=== PATIENT | female | born 1950 ===

== ENCOUNTER 2019-12-27 18:42 | Emergency (ER) | payer MEDICARE, MEDICAID, SELFPAY ==
[2019-12-27] VITALS (14 sets, daily range): BP systolic 118–142; BP diastolic 58–74; PULSE 64–75; RESP 9–33; TEMP 36.2; O2SAT 92–100; BMI 29.8
--- NOTE | 2019-12-27 18:47 | DI.RAD.S_ITS ---
PROCEDURE: XR WRIST LT MIN 3V INDICATIONS: Fall TECHNIQUE: 4 views of the wrist were acquired. COMPARISON: None. FINDINGS: Bones: There is a comminuted, impacted, displaced, intra-articular fracture of the distal left radius. Carpal bones are intact. Visualized portions of the ulna are intact. Scaphoid view: The scaphoid is intact. Soft tissues: No suspicious soft tissue calcifications. IMPRESSION: Comminuted, intra-articular, impacted distal radial fracture. Dictated by: Melissa Giles M.D. on 12/27/2019 at 19:06 Approved by: Melissa Giles M.D. on 12/27/2019 at 19:08
--- NOTE | 2019-12-27 18:59 | ED.UPPEXIN ---
HPI - Extremity Injury (Upper) <MARIAN Crockett - Last Filed: 12/27/19 20:14> General Chief Complaint: Extremity Injury, Upper Stated Complaint: LEFT WRIST INJURY Time Seen by Provider: 12/27/19 18:45 Source: patient Mode of arrival: Ambulatory Limitations: no limitations History of Present Illness HPI narrative: 69yo female presents emergency department after referral from an [facility] for a left wrist fracture. She states she fell to the side and landed on her left hand and experienced sudden pain with a notable deformity. Patient is able to wiggle her fingers without difficulty. X-ray was taken at the [facility] and she was sent here for reduction. Patient denies any major medical issues or severe allergies. Patient denies numbness, tingling, chest pain, shortness of breath, fevers, chills, dizziness, head injury, neck pain, or any other concerns. Related Data Previous Rx's Medication Instructions Recorded hydrocodone-acetaminophen [[place]] 1 tab PO Q4-6H PRN #10 tab 12/27/19 ondansetron 4 mg PO Q6H PRN #10 tab 12/27/19 Allergies Allergy/AdvReac Type Severity Reaction Status Date / Time No Known Drug Allergies Allergy Verified 12/27/19 18:52 Review of Systems <MARIAN Crockett - Last Filed: 12/27/19 20:14> Review of Systems Narrative: REVIEW OF SYSTEMS: GENERAL: Denies fever or chills. HENT: No head trauma. EYES: No no vision changes. CARDIOVASCULAR: No chest pain. RESPIRATORY: No shortness of breath. GASTROINTESTINAL: No nausea, vomiting, diarrhea, or constipation. GENITOURINARY: No flank pain. MUSCULOSKELETAL: Complains of left wrist pain and deformity, see HPI. INTEGUMENTARY: No rash, lesions, or pruritus. NEURO: No numbness, tingling. PSYCH: No behavior or mood changes. Patient History <MARIAN Crockett - Last Filed: 12/27/19 20:14> Medical History No significant medical problems (Acute) Social History Smoking Status: Never smoker Smoking Status: Never smoker Substance Use Type: does not use Exam <MARIAN Crockett - Last Filed: 12/27/19 20:14> Initial Vital Signs Initial Vital Signs: Vital Signs Pulse Rate 72 12/27/19 18:50 Pulse Oximetry 100 12/27/19 18:50 PHYSICAL EXAMINATION: GENERAL: Well groomed, alert, and cooperative. Answers questions promptly and appropriately. Vital signs noted. HENT: Normocephalic, atraumatic. EYES: Symmetrical, sclera white, no periorbital swelling. CARDIOVASCULAR: Regular rate. RESPIRATORY: Normal respiratory rate, trachea midline, airway patent. No stridor, nasal flaring or accessory muscle use. MUSCULOSKELETAL: Notable deformity to left wrist, moderate swelling, and tenderness with palpation to this area. Patient able to move fingers without difficulty, no pain with palpation of elbow, shoulder, hip, or neck. CMS intact distal to fracture, radial pulse 1+. Cap refill less than 2 seconds, hand is warm, ecchymosis noted around wrist and hand. EXTREMITIES: CMS intact. SKIN: Warm, dry, soft, appropriate color for ethnicity. No lesions, rashes, or wounds. NEURO: Alert and Oriented X 3. No sensory deficits. PSYCH: Appropriate affect and mood. <Go Gregory DO - Last Filed: 12/28/19 01:32> Initial Vital Signs Initial Vital Signs: Vital Signs Pulse Rate 72 12/27/19 18:50 Pulse Oximetry 100 12/27/19 18:50 Procedures <MARIAN Crockett - Last Filed: 12/27/19 20:14> Orthopedic Fracture Reduction Fracture #1: Time Out Performed: Yes Side: left Fracture Reduction Location: radius and ulna Analgesia: procedural sedation Technique: direct manipulation Post Reduction X-rays Demonstrate: anatomical reduction Post-reduction neuro exam: intact Post-reduction vascular exam: intact Splint Applied: Yes Patient Tolerated Procedure: Well Additional Comments: Performed by Dr. Gregory. Orthopedic Splinting/Casting Injury #1: Side: left Upper Extremity Injury Location: wrist Upper Extremity Immobilizer: sling/shoulder immobilizer Post splinting neuro exam: intact Post splinting vascular exam: intact Placed by: Nursing <Go Gregory DO - Last Filed: 12/28/19 01:32> Procedural Sedation Consent signed: Yes Time out performed: Yes Indication: fracture/dislocation reduction ASA Class: I Mallampati Airway Classification: Class I Preparation: photo stylist applied, pulse oximeter, capnometry used, supplemental O2 applied, suction/airway equipment at bedside and IV secured IV Propofol dose (mg): 50 Intraservice time/total sedation time (min): 10 ED Sedation Level: Moderate (Concious) Patient Tolerated Procedure: Well Complications: none Course <Eileen ProMARIAN - Last Filed: 12/27/19 20:14> Course Course Narrative: 1904: Dr. Gergory at bedside to discuss conscious sedation with patient. 1946: Conscious sedation an orthopedic reduction performed by Dr. Gregory, splinting performed by Nursing. Patient tolerated procedure well, reported decreased pain after splinting and sling. Orders Ordered: ED Orders 12/27/19 18:47 XR wrist LT min 3V Stat 12/27/19 19:43 XR wrist LT 2V Stat Discontinued Medications Hydrocodone Bitart/Acetaminophen (Vicodin 5/325 Prepack) 1 bottle MISC SEEINSTR ONE Stop: 12/27/19 19:53 Last Admin: 12/27/19 20:13 Dose: 1 bottle Documented by: THEODORE Sodium Chloride (Normal Saline 0.9%) 1,000 mls @ 1,000 mls/hr IV BOLUS ONE Stop: 12/27/19 20:09 Last Admin: 12/27/19 19:37 Dose: 1,000 mls/hr Documented by: THEODORE Ondansetron HCl (Zofran Odt Prepack) 1 bottle MISC SEEINSTR ONE Stop: 12/27/19 19:53 Last Admin: 12/27/19 20:13 Dose: 1 bottle Documented by: THEODORE Propofol (Diprivan) 85 mg 1 mg/kg (85 mg) IV NOW ONE Stop: 12/27/19 19:22 Last Admin: 12/27/19 19:37 Dose: 50 mg Documented by: THEODORE Vital Signs Vital signs: Vital Signs - 8 hr 12/27/19 18:50 12/27/19 18:52 12/27/19 19:25 Temperature 97.2 F L Pulse Rate 72 70 69 Respiratory Rate 18 21 Blood Pressure 118/65 Blood Pressure [Right Arm] 127/60 Pulse Oximetry 100 100 100 12/27/19 19:26 12/27/19 19:30 12/27/19 19:35 Temperature Pulse Rate 73 68 69 Respiratory Rate 33 H 21 20 Blood Pressure 127/58 L 127/60 118/61 Blood Pressure [Right Arm] 118/61 Pulse Oximetry 99 99 100 12/27/19 19:40 12/27/19 19:41 12/27/19 19:45 Temperature Pulse Rate 66 66 67 Respiratory Rate 21 23 18 Blood Pressure 142/66 H 123/61 Blood Pressure [Right Arm] 142/66 H 123/61 Pulse Oximetry 93 92 95 12/27/19 19:50 12/27/19 19:55 12/27/19 20:00 Temperature Pulse Rate 74 67 66 Respiratory Rate 15 18 9 L Blood Pressure 125/73 121/70 142/71 H Blood Pressure [Right Arm] 125/73 121/70 142/71 H Pulse Oximetry 96 99 100 12/27/19 20:05 12/27/19 20:10 Temperature Pulse Rate 64 65 Respiratory Rate 11 L 11 L Blood Pressure 142/69 H 142/74 H Blood Pressure [Right Arm] 142/69 H 142/74 H Pulse Oximetry 99 100 <Go Gregory, DO - Last Filed: 12/28/19 01:32> Orders Ordered: ED Orders 12/27/19 18:47 XR wrist LT min 3V Stat 12/27/19 19:43 XR wrist LT 2V Stat Discontinued Medications Hydrocodone Bitart/Acetaminophen (Vicodin 5/325 Prepack) 1 bottle MISC SEEINSTR ONE Stop: 12/27/19 19:53 Last Admin: 12/27/19 20:13 Dose: 1 bottle Documented by: THEODORE Sodium Chloride (Normal Saline 0.9%) 1,000 mls @ 1,000 mls/hr IV BOLUS ONE Stop: 12/27/19 20:09 Last Admin: 12/27/19 19:37 Dose: 1,000 mls/hr Documented by: THEODORE Ondansetron HCl (Zofran Odt Prepack) 1 bottle MISC SEEINSTR ONE Stop: 12/27/19 19:53 Last Admin: 12/27/19 20:13 Dose: 1 bottle Documented by: THEODORE Propofol (Diprivan) 85 mg 1 mg/kg (85 mg) IV NOW ONE Stop: 12/27/19 19:22 Last Admin: 12/27/19 19:37 Dose: 50 mg Documented by: THEODORE Vital Signs Vital signs: Vital Signs - 8 hr 12/27/19 18:50 12/27/19 18:52 12/27/19 19:25 Temperature 97.2 F L Pulse Rate 72 70 69 Respiratory Rate 18 21 Blood Pressure 118/65 Blood Pressure [Right Arm] 127/60 Pulse Oximetry 100 100 100 12/27/19 19:26 12/27/19 19:30 12/27/19 19:35 Temperature Pulse Rate 73 68 69 Respiratory Rate 33 H 21 20 Blood Pressure 127/58 L 127/60 118/61 Blood Pressure [Right Arm] 118/61 Pulse Oximetry 99 99 100 12/27/19 19:40 12/27/19 19:41 12/27/19 19:45 Temperature Pulse Rate 66 66 67 Respiratory Rate 21 23 18 Blood Pressure 142/66 H 123/61 Blood Pressure [Right Arm] 142/66 H 123/61 Pulse Oximetry 93 92 95 12/27/19 19:50 12/27/19 19:55 12/27/19 20:00 Temperature Pulse Rate 74 67 66 Respiratory Rate 15 18 9 L Blood Pressure 125/73 121/70 142/71 H Blood Pressure [Right Arm] 125/73 121/70 142/71 H Pulse Oximetry 96 99 100 12/27/19 20:05 12/27/19 20:10 Temperature Pulse Rate 64 65 Respiratory Rate 11 L 11 L Blood Pressure 142/69 H 142/74 H Blood Pressure [Right Arm] 142/69 H 142/74 H Pulse Oximetry 99 100 MDM - Extremity Injury (Upper) <MARIAN Crockett - Last Filed: 12/27/19 20:14> Medical Records Attestation: I reviewed the patient's medical records. Lab Data Attestation: I reviewed the patient's lab results. Labs: Point of Care Testing Test Results Not applicable Imaging Data Extremity x-ray #1: Radiologist's Impression: [address] [address] XRay Report Signed Patient: Dede Ludwig [facility]#: [id number] : 9Acct:[id number] Age/Sex: 69 / FDate of Service: 12/27/19 Loc: ED Accession Number: [id number] Procedure: XR wrist LT min 3V Ordering Provider: Eileen Pro PROCEDURE: XR WRIST LT MIN 3V INDICATIONS: Fall TECHNIQUE: 4 views of the wrist were acquired. COMPARISON: None. FINDINGS: Bones: There is a comminuted, impacted, displaced, intra-articular fracture of the distal left radius. Carpal bones are intact. Visualized portions of the ulna are intact. Scaphoid view: The scaphoid is intact. Soft tissues: No suspicious soft tissue calcifications. IMPRESSION: Comminuted, intra-articular, impacted distal radial fracture. Dictated by: Melissa Giles M.D. on 12/27/2019 at 19:06 Approved by: Melissa Giles M.D. on 12/27/2019 at 19:08 Extremity x-ray #2: Radiologist's Impression: [address] [address] XRay Report Signed Patient: Dede Ludwig IMR#: [id number] : 9Acct:[id number] Age/Sex: 69 / FDate of Service: 12/27/19 Loc: ED Accession Number: [id number] Procedure: XR wrist LT 2V Ordering Provider: Go Gregory D.O. PROCEDURE: XR WRIST LT 2V INDICATIONS: post reduction TECHNIQUE: Lateral to views of the wrist were acquired. [facility], 18:51. FINDINGS: Bones: Patient is status post interval reduction of the distal radial fracture. Fracture fragments are in near-anatomic alignment. Soft tissues: No suspicious soft tissue calcifications. IMPRESSION: Status post reduction of the distal radial fracture with near-anatomic alignment of the fracture fragments. Dictated by: Melissa Giles M.D. on 12/27/2019 at 19:56 Approved by: Melissa Giles M.D. on 12/27/2019 at 19:56 MDM Narrative Medical decision making narrative: 69-year-old female presenting to the emergency department for a left wrist deformity after being referred from [facility]. Comminuted intra-articular impacted distal radial fracture, no concerns for neurovascular compromise as CMS is intact, radial pulse 1 + and palpable pre and post reduction. Cap refill less than 2 seconds pre and post reduction, and pre and post splinting. Conscious sedation and reduction was performed by Dr. Gregory. Patient tolerated procedure well. Patient was able to talk, and ambulate without difficulty postprocedure. Return precautions given for new or worsening symptoms. Patient and daughter agreed to plan of care verbalized understanding. They were counseled about the importance of follow-up as surgery, patient and family verbalized understanding. <Go Gregory DO - Last Filed: 12/28/19 01:32> Lab Data Labs: Point of Care Testing Test Results Not applicable Discharge Plan Departure Patient Disposition: Home Clinical Impression: Fracture of wrist Qualifiers: Encounter type: initial encounter Fracture type: closed Laterality: left Qualified Code(s): S62.102A - Fracture of unspecified carpal bone, left wrist, initial encounter for closed fracture Discharge Date/Time: 12/27/19 20:15 Instructions: DI for Wrist Fracture Activity Restrictions/Additional Instructions: Thank you for entrusting me with your care today. As discussed, you have a significant fracture to your left wrist. We reduced it and put your wrist in a splint but you will need follow-up with an orthopedic in the next week. Please call the number listed below tomorrow and schedule an appointment. Return to the emergency department for any new or worsening symptoms such as severe pain, numbness, tingling, chest pain, uncontrollable vomiting, or any other concerns. You have been prescribed a narcotic medication, this medication can make you drowsy. Do not drive while using this medication or perform activities that require mental alertness. These medications can also make you constipated, please use [id number] docusate sodium as needed for constipation. Do not take Tylenol/acetaminophen with this medication as this medication contains Tylenol/acetaminophen. You have also been prescribed nausea medication. Prescriptions: New ondansetron 4 mg tablet,disintegrating 4 mg PO Q6H PRN (Reason: nausea and vomiting) Qty: 10 RF: 0 hydrocodone-acetaminophen [[place]] 5-325 mg tablet 1 tab PO Q4-6H PRN (Reason: pain) Qty: 10 RF: 0 Referrals: Melvin Burns MD [Physician] - (Comminuted, intra-articular, impacted distal radial fracture.) <DO Mehrdad Gold Last Filed: 12/28/19 01:32> Cosign ED Attending Cosignature Attestation: I was immediately available in the department for consultation. This documentation has been reviewed and I agree with assessment and plan. Supervised by Go Gregory, DO
[2019-12-27] MEDS: SODIUM CHLORIDE 0.9% 1,000 ML 1000 ML IV (19:37)
[2019-12-27] MEDS: propofoL 200 MG/20 ML VIAL 85 MG IV (19:37)
--- NOTE | 2019-12-27 19:43 | DI.RAD.S_ITS ---
PROCEDURE: XR WRIST LT 2V INDICATIONS: post reduction TECHNIQUE: Lateral to views of the wrist were acquired. COMPARISON: [facility], CR, XR WRIST LT MIN 3V, 12/27/2019, 18:51. FINDINGS: Bones: Patient is status post interval reduction of the distal radial fracture. Fracture fragments are in near-anatomic alignment. Soft tissues: No suspicious soft tissue calcifications. IMPRESSION: Status post reduction of the distal radial fracture with near-anatomic alignment of the fracture fragments. Dictated by: Melissa Giles M.D. on 12/27/2019 at 19:56 Approved by: Melissa Giles M.D. on 12/27/2019 at 19:56
[2019-12-27] MEDS: ONDANSETRON 4 MG ODT PREPACK 1 BOTTLE MISC (20:13)
[2019-12-27] MEDS: HYDROCODONE/ACET 5/325 PREPACK 1 BOTTLE MISC (20:13)
--- NOTE | 2019-12-27 22:34 | RT ---
12/27/20191934. RT present for conscious sedation via Fentanyl and reduction of fracture of L lower arm in 69YOF. ETCO2 and Pulse oximeter readings all WNL throughout the procedure, and patient recovered quickly and without complications. RT time 15 minutes. Omer Tierney, STOCK TAKER
== END 2019-12-27 20:15 | disposition home or self-care (01) ==
PROVIDERS: Emergency Provider Nurse Practitioner
DX: S62.102A Fracture of unspecified carpal bone, left wrist, initial encounter for closed fracture (principal); W19.XXXA Unspecified fall, initial encounter
CPT/HCPCS: 25605; 29125; 73100; 73110; 99152; 99285; J2704

== ENCOUNTER → 2020-01-08 15:02 | Outpatient (CLI) | payer MEDICARE, MEDICAID, SELFPAY ==
[2020-01-09 09:54] LABS: COVID19 Sendout Not Detected (Not Detect)
== END ==
PROVIDERS: Visit Provider Student in an Organized Health Care Education/Training Program
DX: Z01.812 Encounter for preprocedural laboratory examination (principal)
CPT/HCPCS: 87635

== ENCOUNTER 2020-01-11 08:50 | Day surgery (SDC) | payer MEDICARE, MEDICAID, SELFPAY ==
[2020-01-05 11:00] VITALS: BMI 31.7
[2020-01-11] VITALS (12 sets, daily range): BP systolic 134–170; BP diastolic 67–90; PULSE 73–87; RESP 11–20; TEMP 36.2–36.7; O2SAT 99–100; BMI 32.1
[2020-01-11] MEDS: LACTATED RINGERS 1,000 ML 42 ML IV ×2 (09:58→12:07)
--- NOTE | 2020-01-11 10:21 | PM.PREOP ---
Pre-operative Note COVID-19 COVID-19 status: Negative Result date/Date tested (Pos, Neg/Pending): 01/09/20 Interval Note History & Physical reviewed/Exam performed by Physician: Yes Changes to H&P: No
[2020-01-11] MEDS: CEFAZOLIN 2 GM/100 ML FROZ.PIGGY IV (10:56)
--- NOTE | 2020-01-11 11:23 | SUR.OPER ---
Supine on padded OR bed, head on pillow, operative arm on padded hand table at <90 degree angle, nonoperative arm secured on padded arm board at <90 degrees abduction, legs uncrossed, safety belt at thigh, tape over blanket over lower legs.
[2020-01-11] MEDS: BUPIVACAINE 0.25% W/ EPI 30 ML VIAL INJ (11:32)
--- NOTE | 2020-01-11 12:27 | PM.OP.1 ---
Operative Date/Time/Diagnoses Date of procedure: 01/11/20 Time of procedure: 11:00 Pre-op diagnosis: Intra-articular left distal radius fracture Post-op diagnosis: same Procedure & Clinicians Procedure: Open reduction internal fixation of a left distal radius fracture Same procedure as scheduled: Yes Indications: Patient with a displaced intra-articular distal radius fracture to the left wrist. Surgeon: Melvin Burns Click Yes if Unassisted: Yes Anesthesia Type: General Operative Notes Findings: Displaced intra-articular distal radius fracture with displacement involving the volar ulnar column as well as the dorsal column Closure Type: primary Specimen(s): none sent Applied: implant(s) (Arthrex distal radius plate) Estimated Blood Loss (mL): 10 Tourniquet time (min): 60 Procedure in detail: On date of service, patient was met in the holding area where the operative site was signed and witnessed by the OR staff. The surgery was once again discussed with the patient and any remaining questions or concerns were answered to the patient's full satisfaction. Time-out was performed verifying patient's name procedure and operative site. Patient was taken back to the operating theater and placed on the operating table in a supine position. Great care was taken to ensure that all bony prominences were appropriately padded. Well-padded tourniquet was placed up along the upper extremity. Another time-out was performed verifying patient's name, procedure, and operative site. The upper extremity was then prepped and draped in the normal sterile fashion. Esmarch was used to exsanguinate the limb and the tourniquet was turned up to 250 mm of mercury. Fifteen blade was used to expose the distal radius. An incision was made over the FCR tendons. The FCR tendon was retracted and the floor of the tendon was opened with a 15 blade. The FPL tendon and muscle belly was retracted ulnarly giving us good visualization of the pronator quadratus. The pronator quadratus was excised off the distal radius using the 15 blade and then finished with a periosteal elevator. Next the brachia radialis attachment to the radial styloid was released to help with overall reduction. Retractors were placed allowing us good visualization of the distal radius as well as the shaft. A reduction maneuver was performed and a K-wire was placed holding a provisional reduction of the intra-articular distal radius fracture. A [place] elevator was used to reduce the ulnar column intra-articular fragment reducing the articular surface. A reduction maneuver was then performed to reduce the dorsal column. C-arm was brought in to verify overall reduction. Once we were satisfied with the overall reduction, a plate was placed and held provisionally with K-wires. C-arm was once again used to verify plate positioning as well as reduction. The plate was then fixated to the distal fragment using locking screws. Lateral C-arm views were used to verify that the screws were not intra-articular or broaching the dorsal cortex. At this point we are able to use the plate to help fine tune the overall reduction. Once we were satisfied with the overall reduction the plate was then secured to the shaft with a combination of locking and nonlocking screws. Final x-rays were obtained. The wound was copiously irrigated and closed in a layered fashion. The wrist and hand were cleaned dried dressed. Patient was placed into a splint and taken to the PACU in stable condition. Complications: none Post-operative Condition: stable Disposition: PACU Plan for aftercare: Patient will come out of her splint early next week. At that point there is no restrictions to range of motion of the wrist. No lifting more than 2-3 lb for the next 6 weeks.
[2020-01-11] MEDS: fentaNYL 100 MCG/2 ML INJ IV ×4 (12:44→13:10)
[2020-01-11] MEDS: OXYCODONE IR 5 MG TABLET PO (13:15)
--- NOTE | 2020-01-11 14:11 | SUR.PHASEII ---
Apple sauce and crackers provided prior to discharge. All instructions given to patient and daughter. [place] pass [place] for [address]. Home in stable condition with all belongings returned to patient.
== END 2020-01-11 14:20 | disposition home or self-care (01) ==
PROVIDERS: PCP Family Medicine; Referring Provider Family Medicine; Visit Provider Orthopaedic Surgery
PROC: (CPT 25609; principal; 2020-01-11 10:45)
DX: S52.572A Other intraarticular fracture of lower end of left radius, initial encounter for closed fracture (principal); W18.30XA Fall on same level, unspecified, initial encounter; Y92.9 Unspecified place or not applicable
CPT/HCPCS: 25609; J0690; J1100; J2405; J2704; J3010

== ENCOUNTER → 2020-08-14 10:54 | Outpatient (CLI) | payer MEDICARE, MEDICAID, SELFPAY ==
--- NOTE | 2020-08-14 | DI.US.S_ITS ---
PROCEDURE: US EXTREMITY NONVASC LOWER RT INDICATIONS: Localized swelling, mass and lump, right lower limb TECHNIQUE: Real-time scanning was performed of the popliteal fossa of the right lower extremity, with image documentation. COMPARISON: None. FINDINGS: There is a 6.7 x 1.9 x 2.9 centimeter right popliteal cyst. Proteinaceous debris noted in the popliteal cyst. IMPRESSION: 6.7 x 1.9 x 2.9 centimeter right popliteal cyst. Dictated by: Meaghan Hill MD, PhD on 08/14/2020 at 15:19 Approved by: Meaghan Hill MD, PhD on 08/14/2020 at 15:28
== END ==
PROVIDERS: PCP Family Medicine; Referring Provider Family Medicine; Visit Provider Family Medicine
DX: R22.41 Localized swelling, mass and lump, right lower limb (principal); M71.21 Synovial cyst of popliteal space [Baker], right knee
CPT/HCPCS: 76882

== ENCOUNTER → 2021-06-03 12:21 | Outpatient (CLI) | payer MEDICARE, MEDICAID, SELFPAY ==
[2021-06-03 20:37] LABS: Add Manual Diff / Slide Review NO; Basophils Absolute Auto 0 /uL (0-100); Basophils Percent Auto 0.6 % (0-2); Eosinophils Absolute Auto 0 /uL (0-450); Eosinophils Percent Auto 0.9 % (2-4); Hematocrit 35.1 % (36-46); Hemoglobin 11.8 g/dL (12.0-16.0); Lymphocytes Absolute Auto 800 /uL (1100-4500); Lymphocytes Percent Auto 17.5 % (25-40); Mean Corpuscular HGB Conc 33.7 % (30-36); Mean Corpuscular Hemoglobin 30.7 PG (26-34); Mean Corpuscular Volume 91.3 fL (80-100); Monocytes Absolute Auto 400 /uL (0-900); Monocytes Percent Auto 7.5 % (3-14); Neutrophils Absolute Auto 3500 /uL (1500-7000); Neutrophils Percent Auto 73.5 % (50-75); Platelet Count 222 X10^3/uL (150-400); Red Blood Cell Count 3.84 X10^6/uL (4.0-5.2); Red Cell Distribution Width 14.3 % (11.6-14.8); White Blood Cell Count 4.7 X10^3/uL (4.5-11.0)
[2021-06-03 20:42] LABS: Alanine Aminotransferase 22 IU/L (<35); Albumin 4.2 g/dL (3.5-5.0); Albumin Globulin Ratio 1.4 (1.0-2.8); Alkaline Phosphatase 88 U/L (38-126); Aspartate Aminotransferase 27 IU/L (14-36); BUN Creatinine Ratio 22.8 (6-22); Bilirubin Total 1.3 mg/dL (0.2-1.3); Blood Urea Nitrogen 23 mg/dL (7-17); C-Reactive Protein Quant 0.6 mg/dL (<1.0); Calcium 10.1 mg/dL (8.4-10.2); Carbon Dioxide 31 mmol/L (22-32); Chloride 102 mmol/L (98-107); Cholesterol 241 mg/dL (140-199); Estimated Glomerular Filt Rate 53.9 mL/min (>60); Globulin 3.1 g/dL (1.7-4.1); Glucose 85 mg/dL (80-110); HDL Cholesterol 76 mg/dL (40-60); HEMOLYSIS < 15 (0-50); LDL Cholesterol Calculated 157 mg/dL (<100); Potassium 4.4 mmol/L (3.4-5.1); Sodium 140 mmol/L (137-145); Total Protein 7.3 g/dL (6.3-8.2); Triglycerides 38 mg/dL (35-150)
[2021-06-03 20:43] LABS: Erythrocyte Sedimentation Rate 30 MM/HR (0-20)
== END ==
PROVIDERS: PCP Physician Assistant; Referring Provider Physician Assistant; Visit Provider Physician Assistant
DX: M25.561 Pain in right knee (principal); Z13.220 Encounter for screening for lipoid disorders; M17.11 Unilateral primary osteoarthritis, right knee; R73.9 Hyperglycemia, unspecified; G89.29 Other chronic pain; M25.529 Pain in unspecified elbow; M79.644 Pain in right finger(s)
CPT/HCPCS: 80053; 80061; 85025; 85651; 86140

== ENCOUNTER → 2021-09-12 08:57 | Outpatient (CLI) | payer MEDICARE, MEDICAID, SELFPAY ==
[2021-09-12 18:21] LABS: Add Manual Diff / Slide Review NO; Basophils Absolute Auto 0 /uL (0-100); Basophils Percent Auto 0.4 % (0-2); Eosinophils Absolute Auto 100 /uL (0-450); Eosinophils Percent Auto 1.2 % (2-4); Hemoglobin 12.3 g/dL (12.0-16.0); Lymphocytes Absolute Auto 1000 /uL (1100-4500); Lymphocytes Percent Auto 18.2 % (25-40); Mean Corpuscular HGB Conc 34.1 % (30-36); Mean Corpuscular Hemoglobin 30.9 PG (26-34); Mean Corpuscular Volume 90.6 fL (80-100); Monocytes Absolute Auto 500 /uL (0-900); Monocytes Percent Auto 8.3 % (3-14); Neutrophils Absolute Auto 4100 /uL (1500-7000); Neutrophils Percent Auto 71.9 % (50-75); Platelet Count 210 X10^3/uL (150-400); Red Blood Cell Count 3.97 X10^6/uL (4.0-5.2); Red Cell Distribution Width 13.5 % (11.6-14.8); White Blood Cell Count 5.7 X10^3/uL (4.5-11.0)
[2021-09-12 18:24] LABS: HEMOLYSIS < 15 (0-50); Iron 89 ug/dL (37-170)
[2021-09-12 18:30] LABS: Cholesterol 155 mg/dL (140-199); HDL Cholesterol 78 mg/dL (40-60); LDL Cholesterol Calculated 64 mg/dL (<100); Triglycerides 67 mg/dL (35-150)
[2021-09-12 18:35] LABS: Percent Iron Saturation 29 % (15-50); Total Iron Binding Capacity 302 ug/dL (265-497); Transferrin 230 mg/dL (206-381)
[2021-09-12 19:01] LABS: Ferritin 29 ng/mL (11-264)
[2021-09-16 14:15] LABS: Alanine Aminotransferase 26 IU/L (<35); Albumin 4.3 g/dL (3.5-5.0); Albumin Globulin Ratio 1.4 (1.0-2.8); Alkaline Phosphatase 95 U/L (38-126); Aspartate Aminotransferase 29 IU/L (14-36); BUN Creatinine Ratio 20.7 (6-22); Bilirubin Total 1.2 mg/dL (0.2-1.3); Blood Urea Nitrogen 19 mg/dL (7-17); Calcium 10.2 mg/dL (8.4-10.2); Carbon Dioxide 26 mmol/L (22-32); Chloride 110 mmol/L (98-107); Estimated Glomerular Filt Rate 59.8 mL/min (>60); Globulin 3.1 g/dL (1.7-4.1); Glucose 97 mg/dL (80-110); HEMOLYSIS < 15 (0-50); Potassium 4.5 mmol/L (3.4-5.1); Sodium 143 mmol/L (137-145); Total Protein 7.4 g/dL (6.3-8.2)
== END ==
PROVIDERS: PCP Physician Assistant; Visit Provider Physician Assistant
DX: M25.561 Pain in right knee (principal); E78.5 Hyperlipidemia, unspecified; D64.9 Anemia, unspecified; G89.29 Other chronic pain
CPT/HCPCS: 80053; 80061; 82728; 83540; 83550; 85025

== ENCOUNTER → 2021-12-30 08:45 | Outpatient (CLI) | payer MEDICARE, MEDICAID, SELFPAY ==
[2021-12-30 19:41] LABS: COVID19 - ORCAS (NP or Nasal) Negative (Negative)
== END ==
PROVIDERS: PCP Physician Assistant; Visit Provider Physician Assistant
DX: Z20.822 Contact with and (suspected) exposure to COVID-19 (principal); Z01.812 Encounter for preprocedural laboratory examination
CPT/HCPCS: C9803; U0003

== ENCOUNTER → 2023-02-18 14:24 | Outpatient (CLI) | payer MEDICARE, MEDICAID, SELFPAY ==
--- NOTE | 2023-02-18 14:28 | DI.MG.S_ITS ---
UNILATERAL RIGHT DIGITAL SCREENING MAMMOGRAM 3D/2D WITH CAD: 02/18/2023 CLINICAL: Routine screening. Personal history of left breast cancer. Family history of breast cancer. Comparison is made to exams dated: 10/16/2021 mammogram and 03/06/2020 mammogram - [facility]. There are scattered areas of fibroglandular density in the right breast (category b / 25%-50% glandular tissue). Current study was also evaluated with a Computer Aided Detection (CAD) system. No significant masses, calcifications, or other findings are seen in the breast. There has been no significant interval change. IMPRESSION: NEGATIVE There is no mammographic evidence of malignancy. A 1 year screening mammogram is recommended. This exam was interpreted at Station ID: [id number]. NOTE: For mammograms, a report in lay terms will be sent to the patient. Approximately 15% of breast malignancies will not be visualized mammographically. In the management of a palpable breast mass, a negative mammogram must not discourage biopsy of a clinically suspicious lesion. Electronically Signed By: Trevor guerrero/brandy:02/18/2023 17:23:23 copy to: BUFFY ARTEAGA letter sent: Normal Exam ACR BI-RADS Category 1: Negative [id number]
== END ==
PROVIDERS: PCP Physician Assistant; Referring Provider Internal Medicine Hematology & Oncology; Visit Provider Internal Medicine Hematology & Oncology
DX: Z12.31 Encounter for screening mammogram for malignant neoplasm of breast (principal); Z85.3 Personal history of malignant neoplasm of breast; Z80.3 Family history of malignant neoplasm of breast
CPT/HCPCS: 77063; 77067

== ENCOUNTER → 2023-04-21 11:48 | Outpatient (CLI) | payer MEDICARE, MEDICAID, SELFPAY ==
[2023-04-21 19:54] LABS: Add Manual Diff / Slide Review NO; Basophils Absolute Auto 0 /uL (0-100); Basophils Percent Auto 0.1 % (0-2); Eosinophils Absolute Auto 100 /uL (0-450); Eosinophils Percent Auto 0.8 % (2-4); Hematocrit 36.3 % (36-46); Hemoglobin 12.2 g/dL (12.0-16.0); Lymphocytes Absolute Auto 1000 /uL (1100-4500); Lymphocytes Percent Auto 17.5 % (25-40); Mean Corpuscular HGB Conc 33.6 % (30-36); Mean Corpuscular Hemoglobin 30.4 PG (26-34); Mean Corpuscular Volume 90.5 fL (80-100); Monocytes Absolute Auto 500 /uL (0-900); Monocytes Percent Auto 7.6 % (3-14); Neutrophils Absolute Auto 4400 /uL (1500-7000); Platelet Count 209 X10^3/uL (150-400); Red Blood Cell Count 4.01 X10^6/uL (4.0-5.2); Red Cell Distribution Width 13.8 % (11.6-14.8)
[2023-04-21 20:04] LABS: BUN Creatinine Ratio 20.4 (6-22); Blood Urea Nitrogen 20 mg/dL (7-17); Calcium 9.8 mg/dL (8.4-10.2); Carbon Dioxide 28 mmol/L (22-32); Chloride 104 mmol/L (98-107); Cholesterol 147 mg/dL (140-199); Estimated Glomerular Filt Rate > 60 mL/min (>60); Glucose 83 mg/dL (80-110); HDL Cholesterol 67 mg/dL (40-60); HEMOLYSIS < 15 (0-50); LDL Cholesterol Calculated 69 mg/dL (<100); Potassium 4.6 mmol/L (3.4-5.1); Sodium 140 mmol/L (137-145); Triglycerides 55 mg/dL (35-150)
== END ==
PROVIDERS: PCP Family Medicine; Visit Provider Family Medicine
DX: E78.2 Mixed hyperlipidemia (principal); N18.9 Chronic kidney disease, unspecified; D64.9 Anemia, unspecified
CPT/HCPCS: 80048; 80061; 85025

== ENCOUNTER → 2023-07-13 10:36 | Outpatient (CLI) | payer MEDICARE, MEDICAID, SELFPAY | PROVIDERS: PCP Family Medicine; Visit Provider Family Medicine | DX: L98.8 Other specified disorders of the skin and subcutaneous tissue (principal); L08.89 Other specified local infections of the skin and subcutaneous tissue | CPT/HCPCS: 87070; 87075; 87205 ==